=== PATIENT | male | born 1940 | race Asian ===

== ENCOUNTER 2021-01-09 10:19 | Inpatient (IN) | payer OTHER, BC ==
[2021-01-09] MEDS ORDERED: PANTOPRAZOLE SODIUM 40 MG VIAL IVPUSH ONE (11:38)
[2021-01-09] MEDS ORDERED: PANTOPRAZOLE SODIUM 40 MG VIAL ONE (12:02)
[2021-01-09 12:28] LABS: BASO % 0.2 % (0-2.0); EOS % 0.1 % (0-4.5); HEMATOCRIT 34.3 % (35.4-49); HEMOGLOBIN 11.6 GM/dL (11.7-16.9); LYMPH % 9.2 % (8-40); MCH 30.8 pg (25.7-33.7); MCHC 33.8 g/dl (32.0-35.9); MEAN CELL VOLUME 91.1 fl (80-96); MEAN PLT VOLUME 9.2 fl (7.5-11.1); MONO % 5.6 % (3.8-10.2); NEUT % 84.9 % (42.8-82.8); PLATELET COUNT 295 K/MM3 (134-434); RBC 3.76 M/mm3 (4.00-5.60); RDW 12.7 % (11.9-15.9); WHITE BLOOD COUNT 12.5 K/mm3 (4.0-10.0)
[2021-01-09 12:32] LABS: INR 1.01 (0.83-1.09); PROTHROMBIN TIME (PATIENT) 12.2 SEC (9.7-13.0)
[2021-01-09 12:35] LABS: ACTIVATED PTT 31.4 SECONDS (25.2-36.5)
[2021-01-09 12:46] LABS: CHLORIDE 107 mmol/L (98-107); POTASSIUM 4.2 mmol/L (3.5-5.1); SODIUM 140 mmol/L (136-145)
[2021-01-09 12:48] LABS: CALCIUM 8.9 mg/dL (8.5-10.1)
[2021-01-09 12:49] LABS: ALBUMIN 3.8 g/dl (3.4-5.0); ANION GAP 7 MMOL/L (8-16); BLOOD UREA NITROGEN 53.1 mg/dL (7-18); CO2 26 mmol/L (21-32); GLUCOSE,RANDOM 130 mg/dL (74-106); LIPASE 107 U/L (73-393); MAGNESIUM 1.9 mg/dL (1.8-2.4)
[2021-01-09 12:51] LABS: SGPT/ALT 25 U/L (13-61)
[2021-01-09 12:52] LABS: CREATININE 1.1 mg/dL (0.55-1.3); SGOT/AST 8 U/L (15-37)
[2021-01-09 12:53] LABS: BILIRUBIN,TOTAL 0.6 mg/dL (0.2-1); TOT PROT 7.8 g/dl (6.4-8.2)
[2021-01-09 12:54] LABS: ALK PHOS 62 U/L (45-117)
[2021-01-09] MEDS ORDERED: SODIUM CHLORIDE 0.9% 500 ML INFUS.BAG IV ONE (13:18)
[2021-01-09] MEDS ORDERED: POTASSIUM CHLORIDE 10 MEQ in DEXTROSE 5%-NORMAL SALINE 1,000 ML IVPB SCH (14:00)
[2021-01-09] MEDS: POTASSIUM CHLORIDE 10 MEQ in DEXTROSE 5%-NORMAL SALINE 1,000 ML IVPB SCH (14:49)
[2021-01-09 15:18] LABS: URINE APPEARANCE CLEAR; URINE BILIRUBIN NEGATIVE (NEGATIVE); URINE COLOR YELLOW; URINE GLUCOSE (UA) NEGATIVE (NEGATIVE); URINE KETONE TRACE (NEGATIVE); URINE LEUK ESTERASE NEGATIVE (NEGATIVE); URINE NITRITE NEGATIVE (NEGATIVE); URINE PROTEIN NEGATIVE (NEGATIVE); URINE UROBILINOGEN 0.2 mg/dL (0.2-1.0)
[2021-01-09 22:23] VITALS: BMI 25.9
[2021-01-09] MEDS: SUCRALFATE 1 GM/10 ML UNIT DOSE CUPS PO SCH (22:55)
[2021-01-10] MEDS: POTASSIUM CHLORIDE 10 MEQ in DEXTROSE 5%-NORMAL SALINE 1,000 ML IVPB SCH ×2 (04:00→16:20)
[2021-01-10] MEDS: SUCRALFATE 1 GM/10 ML UNIT DOSE CUPS PO SCH ×5 (07:11→21:23)
[2021-01-10] MEDS: INSULIN SLIDING SCALE (NOVOLOG) 1 VIAL SQ SCH ×3 (07:11→16:10)
[2021-01-10] MEDS ORDERED: PANTOPRAZOLE SODIUM 40 MG VIAL IVPUSH SCH (10:00)
[2021-01-10 10:10] LABS: BASO % 0.3 % (0-2.0); EOS % 2.3 % (0-4.5); HEMATOCRIT 26.7 % (35.4-49); HEMOGLOBIN 9.3 GM/dL (11.7-16.9); LYMPH % 29.6 % (8-40); MCH 31.6 pg (25.7-33.7); MCHC 34.7 g/dl (32.0-35.9); MEAN CELL VOLUME 90.9 fl (80-96); MEAN PLT VOLUME 8.9 fl (7.5-11.1); MONO % 8.6 % (3.8-10.2); NEUT % 59.2 % (42.8-82.8); PLATELET COUNT 246 K/MM3 (134-434); RBC 2.93 M/mm3 (4.00-5.60); RDW 12.7 % (11.9-15.9); WHITE BLOOD COUNT 7.1 K/mm3 (4.0-10.0)
[2021-01-10 10:24] LABS: POTASSIUM 3.8 mmol/L (3.5-5.1)
[2021-01-10 10:39] LABS: BLOOD UREA NITROGEN 30.5 mg/dL (7-18); CALCIUM 8.3 mg/dL (8.5-10.1)
[2021-01-10 10:42] LABS: CREATININE 0.9 mg/dL (0.55-1.3)
[2021-01-10] MEDS ORDERED: IRON SUCROSE INJECTION 200 MG in SODIUM CHLORIDE 90 ML IVPB ONE (15:00)
[2021-01-11] MEDS: POTASSIUM CHLORIDE 10 MEQ in DEXTROSE 5%-NORMAL SALINE 1,000 ML IVPB SCH (05:16)
[2021-01-11] MEDS: INSULIN SLIDING SCALE (NOVOLOG) 1 VIAL SQ SCH (06:04)
[2021-01-11 08:10] LABS: BASO % 0.4 % (0-2.0); EOS % 2.8 % (0-4.5); HEMATOCRIT 26.3 % (35.4-49); HEMOGLOBIN 9.4 GM/dL (11.7-16.9); LYMPH % 28.6 % (8-40); MCH 32.1 pg (25.7-33.7); MCHC 35.8 g/dl (32.0-35.9); MEAN CELL VOLUME 89.7 fl (80-96); MEAN PLT VOLUME 8.6 fl (7.5-11.1); MONO % 9.6 % (3.8-10.2); NEUT % 58.6 % (42.8-82.8); PLATELET COUNT 249 K/MM3 (134-434); RBC 2.93 M/mm3 (4.00-5.60); RDW 12.9 % (11.9-15.9); WHITE BLOOD COUNT 7.1 K/mm3 (4.0-10.0)
[2021-01-11 08:24] LABS: POTASSIUM 3.8 mmol/L (3.5-5.1)
[2021-01-11 08:41] LABS: ALBUMIN 3.1 g/dl (3.4-5.0); BLOOD UREA NITROGEN 20.5 mg/dL (7-18); CALCIUM 8.5 mg/dL (8.5-10.1)
[2021-01-11 08:45] LABS: CREATININE 0.9 mg/dL (0.55-1.3)
[2021-01-11 08:46] LABS: TOT PROT 6.2 g/dl (6.4-8.2)
[2021-01-11 08:48] LABS: BILIRUBIN,TOTAL 0.5 mg/dL (0.2-1)
[2021-01-11] MEDS ORDERED: FOLIC ACID 1 MG TABLET (FP) PO SCH (10:00)
[2021-01-11] MEDS ORDERED: ASCORBIC ACID 500 MG TABLET (FP) PO SCH (10:00)
[2021-01-11] MEDS ORDERED: PANTOPRAZOLE SODIUM 40 MG VIAL IVPUSH SCH (10:00)
[2021-01-11] MEDS: SUCRALFATE 1 GM/10 ML UNIT DOSE CUPS PO SCH (10:04)
[2021-01-11] MEDS ORDERED: FERROUS SO4 325 MG TABLET (FP) PO SCH (12:00)
[2021-01-11 14:47] VITALS: BP 136/74; PULSE 79; TEMP 97.6
[2021-01-11] MEDS ORDERED: INSULIN SLIDING SCALE (NOVOLOG) 1 VIAL SQ SCH (16:30)
[2021-01-11] MEDS ORDERED: POTASSIUM CHLORIDE 10 MEQ in DEXTROSE 5%-NORMAL SALINE 1,000 ML IVPB SCH (18:05)
== END 2021-01-11 16:52 | disposition home health service (06) | DRG 393 ==
LOC: JER 10:19 → JERBED 11:38 → J7W 19:33
PROVIDERS: ADMIT Internal Medicine; ATTEND Internal Medicine
PROC: 0W3P8ZZ Control Bleeding in Gastrointestinal Tract, Via Natural or Artificial Opening Endoscopic (ICD-10-PCS; principal; 2021-01-09 15:38)
DX: K91.89 Other postprocedural complications and disorders of digestive system (principal); K63.81 Dieulafoy lesion of intestine; K31.811 Angiodysplasia of stomach and duodenum with bleeding; K92.0 Hematemesis; D62 Acute posthemorrhagic anemia; E11.9 Type 2 diabetes mellitus without complications; R73.03 Prediabetes; Y83.8 Other surgical procedures as the cause of abnormal reaction of the patient, or of later complication, without mention of misadventure at the time of the procedure; M62.81 Muscle weakness (generalized)
CPT/HCPCS: 36415; 71045-TC-FY; 80053; 81003; 82272; 82550; 82728; 82962; 83540; 83550; 83690; 83735; 84484; 85025; 85610; 85730; 86850; 86900; 86901; 87086; 93005; 93010; 97116-GP; 97161-GP; 99285-25; C9803; J1756; U0003